=== PATIENT | female | born 1980 | race African-American/Black ===

== ENCOUNTER 2019-08-23 19:48 | Emergency (ER) | payer OTHER ==
[~2019-08-23] VITALS: Ht 157.5 cm; Wt 106.6 kg
[~2019-08-23 19:48] MED LIST: NOHOMEMEDICATIONS
[2019-08-23] MEDS ORDERED: COPAXONE20 MG/SYR SUBQ (20:15)
[2019-08-23] MEDS ORDERED: PROPRANOLOL 20M20 M1 PO (20:17)
[2019-08-23] MEDS ORDERED: CYMBALTA30 MG PO (20:17)
[2019-08-23] MEDS ORDERED: PEPCID AC20 MG PO (21:46)
[2019-08-23] MEDS ORDERED: PREDNISONE 20 M20 MG PO (21:46)
[2019-08-23] MEDS ORDERED: EPIPEN 2-P0.3 MG/0.3 IM (21:49)
[2019-08-23 22:24] VITALS: BP 134/82
== END 2019-08-23 22:58 | disposition home or self-care (01) ==
LOC: ER 19:48
DX: T78.40XA Allergy, unspecified, initial encounter (principal); F12.90 Cannabis use, unspecified, uncomplicated; Z88.6 Allergy status to analgesic agent; Z91.018 Allergy to other foods; X58.XXXA Exposure to other specified factors, initial encounter